=== PATIENT | male | born 1980 | race Caucasian/White ===

== ENCOUNTER 2016-05-11 15:02 | Emergency (ER) | payer SELFPAY ==
[~2016-05-11] VITALS: Ht 183.5 cm; Wt 136.4 kg
[2016-05-11] MEDS ORDERED: LIDOCAINE HCL BUFFERED 1% 20 ML VIAL INJ ONE (16:30)
[2016-05-11] MEDS ORDERED: POVIDONE-IODINE 15 ML SOLUTION UD TP ONE (17:15)
[2016-05-11 17:47] VITALS: BP 117/68
== END 2016-05-11 17:53 | disposition home or self-care (01) ==
LOC: EMS 15:05
DX: L02.416 Cutaneous abscess of left lower limb (principal); F17.210 Nicotine dependence, cigarettes, uncomplicated
CPT/HCPCS: 10060; 99283; J3490

== ENCOUNTER 2021-04-15 20:31 | Emergency (ER) | payer MEDICAID ==
[~2021-04-15] VITALS: Ht 185.4 cm; Wt 154.0 kg
[2021-04-15] MEDS ORDERED: CEPH500C3 PO (20:40)
[2021-04-15 21:40] VITALS: BP 156/69
[2021-04-15] MEDS ORDERED: SULF-261 PO (21:48)
== END 2021-04-15 21:59 | disposition home or self-care (01) ==
LOC: EMS 20:31
DX: L97.911 Non-pressure chronic ulcer of unspecified part of right lower leg limited to breakdown of skin (principal); F17.210 Nicotine dependence, cigarettes, uncomplicated; Z79.899 Other long term (current) drug therapy
CPT/HCPCS: 99283; Z7502

== ENCOUNTER 2022-02-06 12:36 | Emergency (ER) | payer MEDICAID ==
[~2022-02-06] VITALS: Ht 182.9 cm; Wt 150.0 kg
[~2022-02-06 12:36] MED LIST: CEPH-558 PO; SULF-261 PO
[2022-02-06 14:05] LABS: BASOPHILS % (AUTO) 0.4 % (0.0-2.0); EOSINOPHILS % (AUTO) 1.2 % (1.0-6.0); HEMATOCRIT 38.6 % (41-53); HEMOGLOBIN 12.8 g/dL (13.5-17.5); LYMPHOCYTES # (AUTO) 0.9 K/uL (1.0-4.8); LYMPHOCYTES % (AUTO) 17.1 % (22.0-44.0); MEAN CORPUSCULAR HEMOGLOBIN 27.6 pg (26.0-34.0); MEAN CORPUSCULAR HGB CONC 33.1 G/dL (31.0-37.0); MEAN CORPUSCULAR VOLUME 83 fL (80-100); MONOCYTES # (AUTO) 0.4 K/uL (0.1-1.0); MONOCYTES % (AUTO) 7.1 % (2.0-9.0); NEUTROPHILS % (AUTO) 74.2 % (40.0-70.0); PLATELET COUNT (AUTO) 214 K/uL (150-450); RED BLOOD CELL COUNT(AUTO) 4.64 MIL/uL (4.50-5.90); RED CELL DISTRIBUTION WIDTH 14.7 % (11.5-14.5)
[2022-02-06] MEDS ORDERED: CLINDAMYCIN PHOS 150 MG/ML 4 ML VIAL IM ONE (14:15)
[2022-02-06] MEDS ORDERED: CLINDAMYCIN HCL 300 MG CAPSULE PO ONE (14:30)
[2022-02-06 14:31] LABS: LACTIC ACID 1.9 mmol/L (0.4-2.0)
[2022-02-06 14:34] LABS: ANION GAP 8 mmol/L (8-16); CALCIUM, TOTAL 8.9 mg/dL (8.8-10.5); CARBON DIOXIDE 30 mmol/L (22-29); CHLORIDE 103 mmol/L (98-107); CREATININE 0.86 mg/dL (0.60-1.30); GLUCOSE,RANDOM 102 mg/dL (70-110); POTASSIUM 3.9 mmol/L (3.5-5.1); SODIUM SERUM 141 mmol/L (136-145); UREA NITROGEN, BLOOD 18 mg/dL (7-18)
[2022-02-06 14:36] LABS: GLOMERULAR FILTR. RATE CALC > 60 mL/min (>60)
[2022-02-06 14:40] LABS: ALANINE AMINOTRANSFERASE 40 U/L (12-78); ALBUMIN 3.5 g/dL (3.4-5.0); ALKALINE PHOSPHATASE 85 U/L (46-116); ASPARTATE AMINOTRANSFERASE 38 U/L (15-37); BILIRUBIN,TOTAL 0.8 mg/dL (0.1-1.0); TOTAL PROTEIN, SERUM 7.4 g/dL (6.4-8.2)
[2022-02-06 15:02] VITALS: BP 147/89
== END 2022-02-06 16:10 | disposition left against medical advice (07) ==
LOC: EMS 12:42
DX: M79.661 Pain in right lower leg (principal); F17.210 Nicotine dependence, cigarettes, uncomplicated; F15.90 Other stimulant use, unspecified, uncomplicated; F19.90 Other psychoactive substance use, unspecified, uncomplicated
CPT/HCPCS: 71045; 80053; 83605; 85025; 93005; 99285; J3490; 36415-L1; 36415-TC; S0077

== ENCOUNTER 2022-09-06 16:25 | Emergency (ER) | payer MEDICAID ==
[~2022-09-06] VITALS: Ht 182.9 cm; Wt 175.4 kg
[2022-09-06 16:39] VITALS: BP 185/102; PULSE 92; RESP 18; TEMP 99.3
[2022-09-06] MEDS ORDERED: CLOT15CR29 TP ×2 (17:08→17:30)
[2022-09-06] MEDS ORDERED: DOXY-354 PO ×2 (17:08→17:30)
[2022-09-06] MEDS ORDERED: CEPH-558 PO ×2 (17:08→17:30)
== END 2022-09-06 18:03 | disposition home or self-care (01) ==
LOC: EMS 16:29
DX: L73.9 Follicular disorder, unspecified (principal); B35.3 Tinea pedis; F17.210 Nicotine dependence, cigarettes, uncomplicated; F15.90 Other stimulant use, unspecified, uncomplicated; F19.90 Other psychoactive substance use, unspecified, uncomplicated
CPT/HCPCS: 99283; Z7502